=== PATIENT | male | born 1995 | race Hispanic/Latino ===

== ENCOUNTER 2017-08-19 20:51 | Emergency (ER) | payer SELFPAY ==
[2017-08-19] MEDS ORDERED: ACETAMINOPHEN 325 MG TAB ONE (22:36)
== END 2017-08-19 23:11 | disposition home or self-care (01) ==
LOC: EDH 20:51
DX: S09.8XXA Other specified injuries of head, initial encounter (principal); W22.8XXA Striking against or struck by other objects, initial encounter; Y93.89 Activity, other specified; Y92.69 Other specified industrial and construction area as the place of occurrence of the external cause; Y99.8 Other external cause status
CPT/HCPCS: 70450; 72125

== ENCOUNTER 2022-01-22 04:09 | Emergency (ER) | payer OTHER ==
[~2022-01-22] VITALS: Ht 182.9 cm; Wt 85.3 kg
[2022-01-22 04:17] VITALS: BP 125/81
[2022-01-22] MEDS ORDERED: KETOROLAC 60 MG VIAL (30MG/ML) IM ONE (04:38)
[2022-01-22] MEDS ORDERED: DICL50TA9 PO (05:24)
== END 2022-01-22 05:32 | disposition home or self-care (01) ==
LOC: EDH 04:09
DX: S20.212A Contusion of left front wall of thorax, initial encounter (principal); E11.9 Type 2 diabetes mellitus without complications; Z79.1 Long term (current) use of non-steroidal anti-inflammatories (NSAID); W18.39XA Other fall on same level, initial encounter; Y93.89 Activity, other specified; Y92.89 Other specified places as the place of occurrence of the external cause; Y99.8 Other external cause status
CPT/HCPCS: 99283; 71100; 96372; J1885

== ENCOUNTER 2024-12-29 03:55 | Emergency (ER) | payer SELFPAY ==
[~2024-12-29] VITALS: Ht 182.9 cm; Wt 85.0 kg
[~2024-12-29 03:55] MED LIST: DICL50TA9 PO
[2024-12-29 04:25] LABS: AMPHET/METH SCREEN,URINE NEGATIVE (NEGATIVE); BARBITURATE SCREEN, URINE NEGATIVE (NEGATIVE); CANNABINOID SCREEN,URINE NEGATIVE (NEGATIVE); COCAINE SCREEN,URINE NEGATIVE (NEGATIVE)
[2024-12-29 04:26] LABS: APPEARANCE,URINE CLEAR (CLEAR); GLUCOSE, URINE (UA) >=1000 mg/dL (NEGATIVE); LEUKOCYTE ESTERASE ,URINE NEGATIVE Leu/uL (NEGATIVE); NITRATE,URINE NEGATIVE (NEGATIVE); OCCULT BLOOD,URINE NEGATIVE (NEGATIVE)
--- NOTE | 2024-12-29 04:26 | ERN ---
General Chief Complaint: Dizzy/Light Headed Stated Complaint: DIZZINESS Time Seen by MD: 03:57 Source: patient, family History of Present Illness Initial Comments Patient is a 29-year-old male coming in with multiple complaints. Per patient he presented with a left arm left leg pain then followed with a left chest pain as well. He states he feels a burning sensation in his left sided in his chest. He also states that he has had similar episodes in the past. Long with the all this he did state he presented with dizziness which has since improved. Allergies: Coded Allergies: No Known Drug Allergies (Unverified Allergy, Unknown, 01/22/22) Home Meds Active Scripts Diclofenac Sodium (Diclofenac Sodium) 50 Mg Tablet.dr, 50 MG PO TIDP PRN for PAIN, #20 TAB 0 Refills Prov:ANDREW LU MD 01/22/22 Past Medical History Past Medical History: Diabetes-Type II Past Surgical History: None Social History Social History: Other ROS Dictation CONSTITUTIONAL: No chills, no fever, no weakness, no diaphoresis, no malaise. HEAD/FACE: No signs of trauma. EENT: No eye pain, no blurred vision, no tearing, no double vision, no ear pain, no ear discharge, no nose pain, no nasal congestion, no throat pain, no throat swelling, no mouth pain. RESPIRATORY: No cough, no orthopnea, no SOB, no stridor, no wheezing. CARDIOVASCULAR: chest pain, no edema, no palpitations, no syncope. GASTROINTESTINAL/ABDOMINAL: No abdominal pain, no constipation, no diarrhea, no nausea, no vomiting. GENITOURINARY: No abnormal discharge, no dysuria, no frequent urination, no hematuria. No complaints of pain in the genitals. MUSCULOSKELETAL: No back pain, no gout, no joint pain, no joint swelling, muscle pain, no muscle stiffness, no neck pain. INTEGUMENTARY: No change in color, no change in hair/nails, no dryness, no lesion, no lumps, no rash. NEUROLOGICAL/PSYCH: No anxiety, not depressed, no emotional problem, no headache, no numbness, no pre-existing deficit, no history of seizures, no tremors, no weakness. HEMATOLOGIC/LYMPHATIC: Not anemic, no history of blood clots, no apparent bleeding, no bruising, glands not swollen. All Systems Negative, Except as Noted. Physical Exam Physical Exam Dictation VITAL SIGNS: Reviewed. GENERAL APPEARANCE: Alert, oriented x3, no acute distress, obese. HEAD AND FACE: Non-traumatic. EYES: PERRL, pink conjunctivas, eyelid no trauma, anterior chamber clear. EARS: Pinnas intact and no signs of trauma or erythema. Ear canals clear and no discharge. TMs no erythema. NOSE: No discharge, no bleeding. OROPHARYNX: Mouth normal, teeth no caries, tongue pink. Pharynx clear, no erythema. Tonsils no exudates, no abscesses noted. Mucous membrane moist. NECK: Supple, non-tender, no thyromegaly, no masses, no JVD, no bruits. BREAST: Deferred. CHEST: No tenderness, no crepitus, no paradoxical movement, no retractions. LUNGS: Clear, well-ventilated, symmetric, no rales, no wheezing, no rhonchi, no stridor, good breath sounds bilaterally. HEART: Regular rate, regular rhythm, no murmur, no gallops. VASCULAR: No peripheral edema. ABDOMEN: Soft, positive bowel sounds, nondistended, no guarding, nontender, no rebound, no masses no hepatomegaly, no splenomegaly, no Mas's sign, no hernias. RECTAL: Deferred. GENITAL: Deferred. NEUROLOGICAL: Normal speech, gross motor function intact, gross sensory function intact. MUSCULOSKELETAL: Neck nontender, full range of motion, back nontender, full range of motion. EXTREMITIES: Nontender, full range of motion. SKIN: Color pink, dry, no turgor, no rash, no lacerations, no abrasions, no contusions. LYMPHATICS: Deferred. Results Laboratory and Microbiology Lab and Micro Result Laboratory Tests Test 12/29/24 04:05 12/29/24 04:38 Urine Color COLORLESS (YELLOW) Urine Appearance CLEAR (CLEAR) Urine pH 6.0 (5.0-8.0) Urine Specific [place] 1.043 (1.001-1.031) Urine Protein NEGATIVE mg/dL (NEGATIVE) Urine Glucose (UA) >=1000 mg/dL (NEGATIVE) H Urine Ketones 10 mg/dL (NEGATIVE) H Urine Occult Blood NEGATIVE (NEGATIVE) Urine Nitrate NEGATIVE (NEGATIVE) Urine Bilirubin NEGATIVE mg/dL (NEGATIVE) Urine Urobilinogen 0.2 mg/dL (0.2-1.0) Urine Leukocyte Esterase NEGATIVE Maddie/uL Urine RBC 0-1 /HPF (0-1) Urine WBC 0-1 /HPF (0-1) Urine Bacteria None /HPF (None Seen) Urine Opiates Screen NEGATIVE (NEGATIVE) Urine Barbiturates Screen NEGATIVE (NEGATIVE) Urine Phencyclidine Screen NEGATIVE (NEGATIVE) Urine Amphetamines Screen NEGATIVE (NEGATIVE) Urine Benzodiazepines Screen NEGATIVE (NEGATIVE) Urine Cocaine Screen NEGATIVE (NEGATIVE) Urine Marijuana (THC) Screen NEGATIVE (NEGATIVE) White Blood Count 5.2 K/uL (4.8-10.8) Red Blood Count 5.10 MIL/uL (4.50-6.20) Hemoglobin 14.6 g/dL (14.0-18.0) Hematocrit 41.2 % (42-54) L Mean Corpuscular Volume 80.8 fL (79-99) Mean Corpuscular Hemoglobin 28.6 pg (27.0-33.0) Mean Corpuscular Hemoglobin Concent 35.4 g/dL (32.0-36.0) Red Cell Distribution Width 12.0 % (11.0-15.5) Platelet Count 268 K/uL (130-400) Mean Platelet Volume 9.9 fL (7.5-10.5) Immature Granulocyte % (Auto) 0.2 % (0-1) Neutrophils (%) (Auto) 44.1 % (40.0-77.0) Lymphocytes (%) (Auto) 39.9 % (21.0-51.0) Monocytes (%) (Auto) 12.7 % (3.0-13.0) Eosinophils (%) (Auto) 2.7 % (0.0-8.0) Basophils (%) (Auto) 0.4 % (0.0-5.0) Neutrophils # (Auto) 2.3 K/uL (1.8-7.7) Lymphocytes # (Auto) 2.1 K/uL (1.0-4.8) Monocytes # (Auto) 0.7 K/uL (0.1-1.0) Eosinophils # (Auto) 0.14 K/uL (0.00-0.70) Basophils # (Auto) 0.02 K/uL (0.00-0.20) Absolute Immature Granulocyte (auto 0.01 K/uL (0-1) Nucleated Red Blood Cells 0.0 % (0.0-0.19) Sodium Level 133 mmol/L (136-145) L Potassium Level 4.4 mmol/L (3.5-5.1) Chloride Level 98 mmol/L (101-111) L Carbon Dioxide Level 27 mmol/L (21-32) Blood Urea Nitrogen 14 mg/dL (7-18) Creatinine 0.7 mg/dL (0.5-1.3) Glomerular Filtration Rate Calc 127 mL/min (>90) Random Glucose 353 mg/dL (70-105) H Total Calcium 8.9 mg/dL (8.5-10.1) Magnesium Level 2.00 mg/dL (1.80-2.40) Total Creatine Kinase 65 U/L (21-232) Troponin I High Sensitivity < 4 ng/L (4-75) L Labs Reviewed?: Yes EKG/XRAY/US/CT/MRI EKG Comment 12/29/2024 time 4:10 a.m. Ventricular rate 98 Sinus rhythm [place] [address] wave elevation or depression MDM MDM: Differential diagnosis: Diabetes mellitus hyperglycemia uncontrolled, neuropathy, dehydration, Rationale: Tests considered and ordered secondary to shared decision making include: Previous outside records reviewed: Old ER visits. Risk of complication and/or morbidity or mortality of patient management: None Medications-Per medication reconciliation Need for hospitalization: Patient does not meet criteria for hospitalization. Need for emergency major/minor surgery: No Patient is a 29-year-old male coming in complaining of generalized body weakness left-sided weakness left-sided pain. Patient states that he has not been taking his medication as prescribed for his diabetes. Laboratory workup positive for elevated blood glucose patient was hydrated with IV fluids received IV insulin x5 units we will be discharged in stable condition with a diagnosis of diabetes mellitus hyperglycemia uncontrolled and dehydration. ED Course Orders Procedure Category Date Status Time Cbc With Differential LAB 12/29/24 Complete 04:02 Chest 1vw RAD 12/29/24 Taken 04:02 12 Lead Ekg Tracing- EKG 12/29/24 Logged Technical 04:02 0.9%Nacl 1000ml (Ns PHA 12/29/24 Complete 1000ml) 04:30 Magnesium LAB 12/29/24 Complete 04:02 Creatine Kinase, Total LAB 12/29/24 Complete 04:02 Troponin I High LAB 12/29/24 Complete Sensitivity 04:02 Basic Metabolic Panel LAB 12/29/24 Complete 04:02 Drug Screen Urine LAB 12/29/24 Complete 04:02 Urinalysis LAB 12/29/24 Complete W/Microscopic 04:05 Clonidine Hcl 0.1 Mg PHA 12/29/24 Complete Tablet (Catapres 0. 05:30 Insulin Regular, PHA 12/29/24 Complete Human 3ml (Humulin R 05:30 Current Medications Medications (Trade) Dose Ordered Sig/Shashi Route PRN Reason Start Time Stop Time Status Last Admin Dose Admin Clonidine HCl (CATApres 0.1 mg TAB) 0.1 mg ONCE ONCE PO 12/29/24 05:30 12/29/24 05:31 DC Insulin Human Regular (humuLIN R 100 UNIT/ML 3ML) 5 unit ONCE ONCE IV 12/29/24 05:30 12/29/24 05:31 DC Sodium Chloride 1,000 ml @ 0 mls/hr ONCE ONCE IV 12/29/24 04:30 12/29/24 04:31 DC 12/29/24 04:42 Vital Signs Date Time Temp Pulse Resp B/P (MAP) Pulse Ox O2 Delivery O2 Flow Rate FiO2 12/29/24 03:56 98.4 100 18 137/96 98 Room Air* 0 21 12/29/24 03:56 98.4 104 18 137/96 99 0 DX & DISP Disposition: Discharge Departure Impression: Primary Impression: Uncontrolled diabetes mellitus with hyperglycemia Additional Impressions: Dehydration, Noncompliance Condition: Stable Scripts Lisinopril (Lisinopril) 2.5 Mg Tablet 1 TAB PO DAILY for 30 Days, #30 TAB 0 Refills Prov: JANEEN LOBO MD 12/29/24 Metformin HCl (Metformin HCl ER) 1,000 Mg [id number] 1 TAB PO BID for diabetes for 30 Days, #60 TAB 0 Refills Prov: JANEEN LOBO MD 12/29/24 Additional Instructions: FOLLOW-UP WITH PRIMARY CARE PROVIDER IN 1 TO 2 DAYS. TAKE MEDICATIONS DIRECTED HERE IN THE EMERGENCY ROOM. OKAY TO CONTINUE HOME MEDICATIONS UNLESS OTHERWISE DISCUSSED DURING YOUR VISIT IN THE EMERGENCY ROOM TODAY. RETURN TO YOUR NEAREST EMERGENCY ROOM IF SYMPTOMS WORSEN OR IF THERE IS NO IMPROVEMENT. CALL 911 IF YOU NEED IMMEDIATE ASSISTANCE. TAKE TYLENOL AXLO-TFE-HNHDYSL NEEDED AND IF NO CONTRAINDICATIONS ARE PRESENT. INCREASE ORAL HYDRATION. A WOUND CULTURE OR URINE CULTURE WAS ORDERED HERE IN THE EMERGENCY ROOM DEPARTMENT PLEASE FOLLOW-UP WITH PRIMARY CARE PROVIDER AND ADVISE THEM TO GET REPORTS FROM OUR FACILITY. IF YOU HAD ANY LIANE WRAP/SPLINTS THAT WERE APPLIED HERE, PLEASE DO NOT REMOVE THEM UNTIL YOU SEE YOUR PRIMARY CARE OR SPECIALTY. Referrals: Referrals: SELF,REFERRAL (PCP) LORE TEJADA MD Time of Disposition: 05:37 JANEEN LOBO MD Dec 29, 2024 04:26
[2024-12-29] MEDS: 0.9%NACL 1000ML 1,000 ML IV ONE (04:42)
[2024-12-29 04:56] LABS: IMMATURE GRANULOCYTE ABSOLUTE 0.01 K/uL (0-1); NUCLEATED RED BLOOD CELLS 0.0 % (0.0-0.19); PLATELET COUNT (AUTO) 268 K/uL (130-400); RED BLOOD CELL COUNT(AUTO) 5.10 MIL/uL (4.50-6.20); RED CELL DISTRIBUTION WIDTH 12.0 % (11.0-15.5); WHITE BLOOD COUNT (AUTO) 5.2 K/uL (4.8-10.8)
[2024-12-29 04:59] LABS: CREATINE KINASE, TOTAL 65.0 U/L (21-232); CREATININE 0.7 mg/dL (0.5-1.3); GLOMERULAR FILTR. RATE CALC 127.0 mL/min (>90); GLUCOSE,RANDOM 353.0 mg/dL (70-105); SODIUM SERUM 133.0 mmol/L (136-145); UREA NITROGEN, BLOOD 14.0 mg/dL (7-18)
[2024-12-29] MEDS ORDERED: METF-1151 PO (05:38)
[2024-12-29] MEDS ORDERED: LISI2.5T13 PO (05:38)
[2024-12-29 06:23] VITALS: BP 120/79; PULSE 89; RESP 18; TEMP 98.2; O2SAT 99
--- NOTE | 2024-12-29 06:28 | HMCIMG ---
EXAM: CR Chest, 1 View. CLINICAL HISTORY: cp COMPARISON: None provided. FINDINGS: LUNGS: There is no mass, infiltrate, or acute pulmonary abnormality. PLEURAL SPACES: No evidence of pleural effusion or pneumothorax. MEDIASTINUM: Cardiac size and mediastinal contours within normal limits. BONES: No aggressive appearing osseous lesion seen. IMPRESSION: No acute cardiopulmonary pathology is evident. /[place]
--- NOTE | 2024-12-29 07:17 | EKG ---
[facility] Test Date: 2024-12-29 Test Time: 04:10:52 Pat Name: AYE ANGUIANO Department: [facility] Room: Gender: M Straight Line Edger: [id number] : [id number] Requested By: JANEEN LOBO Order Number: [id number] Reading MD: Angel Khan Measurements Intervals [place] Rate: 98 P: 68 GA: 159 QRS: 75 QRSD: 89 T: 57 QT: 332 QTc: 424 Interpretive Statements Sinus rhythm No previous ECG available for comparison Electronically Signed On 12-30-2024 21:23:58 CDT by Angel Khan Please click the below link to view image of tracing.
== END 2024-12-29 06:26 | disposition home or self-care (01) ==
LOC: EDH 03:55
DX: E11.65 Type 2 diabetes mellitus with hyperglycemia (principal); E86.0 Dehydration; Z91.199 Patient's noncompliance with other medical treatment and regimen due to unspecified reason
CPT/HCPCS: 99285; 96374; 96361; 71045; 82550; 83735; 84484; 80048; 80305; 85025; 82948 ×2; 36415; 93005; 81001; J1815; J7030